=== PATIENT | male | born 1960 | race Caucasian/White ===

== ENCOUNTER 2020-03-20 18:13 | Observation (INO) | payer BC ==
[2020-03-20 20:35] LABS: Bilirubin Negative (Negative); Blood, Urine Negative (Negative); Clarity Clear (Clear); Glucose, Urine (Dipstick) 70 mg/dL (Negative); Ketone, Urine Negative (Negative); Leukocyte Negative Leu/uL (Negative); Nitrite Negative (Negative); Protein, Urine (Dipstick) Negative (Neg-Trace); Specific Gravity, Urine 1.058 (1.002-1.036); Urobilinogen Normal mg/dL (Less than 2); pH, Urine 5.5 (5.0-9.0)
[2020-03-20] MEDS ORDERED: Acetaminophen 325 MG TAB PO PRN (21:27)
[2020-03-20] MEDS ORDERED: Acetaminophen 650 MG Suppository PR PRN (21:27)
[2020-03-20] MEDS ORDERED: Dextrose 5% in Water 1,000 ML IV PRN (21:33)
[2020-03-20] MEDS ORDERED: Dextrose 50% Abboject 50 ML SYRINGE SLOW IVP PRN (21:33)
--- NOTE | 2020-03-20 21:50 | PDOC.HHP ---
Hospitalist HPI - History of Present Illness Confusion History of Present Illness: ADMISSION DATE: 03/20/2020 TIME OF ASSESSMENT: 1999 PRIMARY CARE PHYSICIAN: Dr. March CHIEF COMPLAINT: Confusion HPI: Mr. Veras is a 60-year-old gentleman who presented to the emergency department due to confusion and generalized weakness. The patient states that he felt well this morning when he woke up and had breakfast prior to going outside to do some work around his home. Patient states he decided to take a nap after feeling fatigued and generally unwell. He does not recall waking up and vaguely remembers being in the car on the way to the hospital. His took him to the emergency department in [place]. The patient apparently was disoriented shortly after waking and had been unbuttoning and buttoning his shirt. He also did not recognize his for what he was. patient states that he did not drink much fluids today and only had a couple coffee this morning. He did not have lunch. Did not check his glucose before taking his nap when he was feeling unwell. On arrival to the emergency department the patient was noted to have a glucose in the 40s. On arrival to the emergency department [place] he was given an amp of D50. Also given 4 tablets of aspirin due to concerns for possible stroke. ROS: Patient apparently has been well in recent days. Denies having any recent fevers chills or sweats. Denies any chest pain or palpitations. No shortness of breath and no headaches or dizziness. Today he did not experience any evident extremity weakness slurred speech or facial droop. Gait was normal. Did not experience any nausea or vomiting. Has not had any recent abdominal p ain or cramping. No urinary symptoms. All other review systems are negative. ED COURSE: EKG done at [place] showed sinus tachycardia with a heart rate of 101. No ST elevations or T wave abnormalities CT head was done and showed no acute intracranial abnormalities. Laboratory studies done notable for a white count of 13, hemoglobin 16.1, hematocrit 51.6%. Platelets 287. Neutrophils 85.1%. Sodium 143 potassium 4.2. BUN 19, creatinine 0.94, GFR 82. LFTs unremarkable. Glucose 47. Urinalysis unremarkable. Patient transferred to the ER here. PAST MEDICAL HISTORY: 1. Type 2 diabetes mellitus, on insulin 2. Hyperlipidemia 3. Hypertension PAST SURGICAL HISTORY: 1. Tonsillectomy 2. Appendectomy 3. Right ankle surgery 4. Bunion surgery 5. History of jaw fracture requiring wiring SOCIAL HISTORY: Patient lives with his . He is fully independent at baseline. Denies any cigarette but does dip half a can a day. Denies any alcohol consumption for 20 years. Has a history of alcohol abuse in the past. Denies any drug use. FAMILY HISTORY: Noncontributory ALLERGIES: No known drug allergies CURRENT MEDICATIONS: 1. Metformin 2. Lisinopril 3. Glipizide 4. Atorvastatin 5. Novolin insulin 6. Aspirin - Exam General Appearance: NAD General - other findings: Temp 98.4, BP 137/88, HR 100, RR 18, O2 sat 97% on room air. Eye - other findings: EOM intact, left lateral nystagmus ENT: normocephalic atraumatic, no oropharyngeal lesions, moist mucosa Neck: supple, no lymphadenopathy Heart: RRR, normal peripheral pulses Respiratory: CTAB, no wheezes, normal chest expansion Gastrointestinal: soft, non-tender, non-distended, normal bowel sounds, no guarding, no rigidity Extremities: no edema Skin: normal turgor, no lesions Neurological: cranial nerve grossly intact, normal sensation to touch, no weakness, no focal deficits Neurological - other findings: Speech normal, facial sensation intact, coordination normal Musculoskeletal: normal tone, normal strength, no muscle wasting Psychiatric: normal affect, normal behavior, A&O x 3 Hospitalist Results - Labs Lab results: Troponin I Less than 0.010 ng/mL (< 0.028) 03/20/20 19:02 Urine Ketones Negative mg/dL (Negative) 03/20/20 19:43 Urine Blood Negative (Negative) 03/20/20 19:43 Urine Nitrite Negative (Negative) 03/20/20 19:43 Ur Leukocyte Esterase Negative Teresa/uL (Negative) 03/20/20 19:43 Hospitalist H&P A/P - Problem (1) Confusion Code(s): R41.0 - DISORIENTATION, UNSPECIFIED Status: Acute Assessment and Plan: Admission request for CVA R/O given AMS episode and nystagmus. CT head negative. MRI brain in the AM. Echo. Carotid US. Neuro consult. Neuro checks. Lipid Panel with AM labs. Statin and Aspirin. (2) Hypoglycemic episode in patient with diabetes mellitus Code(s): E11.649 - TYPE 2 DIABETES MELLITUS WITH HYPOGLYCEMIA WITHOUT COMA Status: Acute Assessment and Plan: AMS likely secondary to hypoglycemic episode rather than CVA/TIA. Monitor glucose closely, for tonight, then resume ACHS if no further hypoglycemic episodes. Hold ISS. (3) Hypertension Code(s): I10 - ESSENTIAL (PRIMARY) HYPERTENSION Status: Chronic Assessment and Plan: Monitor BP Resume home meds once verified. (4) Hyperlipidemia Code(s): E78.5 - HYPERLIPIDEMIA, UNSPECIFIED Status: Chronic Assessment and Plan: Resume/increase statin. Lipid Panel with AM labs. - Plan Plan: FULL CODE STATUS. DVT Prophylaxis: Patient is ambulatory. Discussed with attending who agrees with plan as above.
[2020-03-20 23:35] LABS: Troponin I Less than 0.010 ng/mL (< 0.028)
[2020-03-21 01:42] LABS: Troponin I Less than 0.010 ng/mL (< 0.028)
[2020-03-21 02:53] VITALS: BMI 23.2
[2020-03-21 05:15] LABS: #Eosinphils 0.1 thou/uL (0.0-0.7); #Monocytes 0.6 thou/uL (0.11-0.59); #Neutrophils 4.2 thou/uL (1.40-6.50); %Basophils 0.6 % (0.0-1.0); %Eosinophils 2.1 % (0.0-10.0); %Lymphocytes 17.5 % (21.0-51.0); %Monocytes 9.9 % (0.0-10.0); %Neutrophils 69.9 % (42.0-75.0); Mean Corpuscular HGB CONC 33.9 g/dL (32.0-36.0); Mean Corpuscular Hemoglobin 31.9 pg (27.0-31.0); Mean Corpuscular Volume 94.1 fL (78.0-98.0); Mean Platelet Volume 6.9 fL (7.4-10.4); Platelet Count 246 thou/uL (130-400)
[2020-03-21 05:41] LABS: Anion Gap 14 mmol/L (10-20); BUN (Urea Nitrogen) 17 mg/dL (8.4-25.7); Calc. Creatinine Clearance 82 mL/min (70-130); Calcium 8.9 mg/dL (7.8-10.44); Carbon Dioxide 25 mmol/L (23-31); Cardiac Risk 3.5 (Less than 4.5); Chloride 103 mmol/L (98-107); Cholesterol 118 mg/dl (< 200 Desired); Estimated GFR-MDRD Greater than 90; Glucose 152 mg/dL (80-115); HDL Cholesterol 34 mg/dL (>60 Neg Risk); LDL Cholesterol, Calculated 75 mg/dL; Potassium 4.4 mmol/L (3.5-5.1); Sodium 138 mmol/L (136-145); Triglycerides 47 mg/dL (Less than 150)
[2020-03-21] MEDS: HumaLOG 300 UNITS/3 ML VIAL SC PRN ×2 (06:04→17:45)
[2020-03-21] MEDS ORDERED: Lorazepam 2 MG/ML VIAL SLOW IVP SCH (07:00)
[2020-03-21] MEDS ORDERED: Aspirin 81 mg Enteric Coated Tablet PO SCH (09:00)
[2020-03-21] MEDS ORDERED: Lorazepam 0.5 MG TAB PO PRN (09:53)
--- NOTE | 2020-03-21 11:53 | CON ---
NEUROLOGY CONSULTATION DATE OF CONSULTATION: 03/21/2020 REASON FOR CONSULTATION: Altered mental status. HISTORY OF PRESENT ILLNESS: Mr. Veras is a 60-year-old gentleman with medical history significant for hypertension, hyperlipidemia, type 2 diabetes mellitus, presented to the emergency room because of altered mental status and generalized weakness. Per the patient, yesterday morning he felt well, had breakfast and prior to going outside to do some work, he decided to do some work in his house. He decided to take a nap afterwards and has no recollection of the events. Per patient, he does not recall waking up and per he does not even remember his name. He was extremely disoriented, walking around in the house, buttoning and unbuttoning his shirt. The denies any focal weakness, facial droop, nausea, vomiting, headache, chest pain, abdominal pain associated with the episode. On arrival to the emergency room, his blood glucose was in the 40s, so he was given an amp of D50 and four tablets of aspirin for possible stroke. The patient is now back to the baseline. The patient denies any complaints. REVIEW OF SYSTEMS: All systems reviewed and were negative except the pertinent positives and negatives mentioned in the HPI. In the emergency room, head CT was done, which did not reveal any acute intracranial abnormalities. EKG done at [place] showed sinus tachycardia. He was transferred to the emergency room at [facility] for further evaluation to rule out TIA. PAST MEDICAL HISTORY: Diabetes, hypertension, hyperlipidemia. PAST SURGICAL HISTORY: Tonsillectomy, appendectomy, right ankle surgery, bunion surgery, history of jaw fracture requiring wiring. SOCIAL HISTORY: The patient is , lives with his . Denies smoking, alcohol, illegal drug use. He does have history of alcohol abuse in the past about 20 years ago. FAMILY HISTORY: No family history of stroke. ALLERGIES: NO KNOWN DRUG ALLERGIES. HOME MEDICATIONS: 1. Metformin. 2. Lisinopril. 3. Glipizide. 4. Atorvastatin. 5. Novolin insulin. 6. Aspirin. VITAL SIGNS: Temp 98.4, BP 137/88, HR 100, RR 18, O2 sat 97% on room air. PHYSICAL EXAMINATION: General Appearance: NAD General - other findings: ENT: normocephalic atraumatic, no oropharyngeal lesions, moist mucosa Neck: supple, no lymphadenopathy Heart: RRR, normal peripheral pulses Respiratory: CTAB, no wheezes, normal chest expansion Gastrointestinal: soft, non-tender, non-distended, normal bowel sounds, no guarding, no rigidity Extremities: no edema Skin: normal turgor, no lesions Neurological: Mental status; the patient is alert and oriented to person, place, and time. Recent and remote memory intact. Fund of knowledge is appropriate. Speech is clear. Motor; muscle tone and bulk are normal. Strength 5/5 bilaterally. Cranial nerves II through XII intact. Sensory intact. Cerebellar; finger-nose testing intact. Gait; deferred due to the patient's safety reasons. DATA REVIEWED: I reviewed the labs, which were essentially unremarkable. CT did not reveal acute intracranial pathology. Troponin I Less than 0.010 ng/mL (< 0.028) 03/20/20 19:02 Urine Ketones Negative mg/dL (Negative) 03/20/20 19:43 Urine Blood Negative (Negative) 03/20/20 19:43 Urine Nitrite Negative (Negative) 03/20/20 19:43 Ur Leukocyte Esterase Negative Teresa/uL (Negative) 03/20/20 19:43 ASSESSMENT AND PLAN: (1) Confusion Code(s): R41.0 - DISORIENTATION, UNSPECIFIED Status: Acute (2) Hypoglycemic episode in patient with diabetes mellitus Code(s): E11.649 - TYPE 2 DIABETES MELLITUS WITH HYPOGLYCEMIA WITHOUT COMA Status: Acute (3) Hypertension Code(s): I10 - ESSENTIAL (PRIMARY) HYPERTENSION Status: Chronic . (4) Hyperlipidemia Code(s): E78.5 - HYPERLIPIDEMIA, UNSPECIFIED Status: Chronic Mr. Veras is a 60-year-old male, who presented with an episode of altered mental status with fatigue. Differential diagnosis includes transient ischemic attack versus seizure activity versus hypoglycemic episode resulting in confusion. MRI of the brain to rule out acute intracranial pathology. 2D echo to evaluate for left ventricular ejection fraction. Carotid Dopplers and telemetry. Neuro checks every 4 hours. EEG to rule out underlying seizure activity. Check hemoglobin A1c fasting lipid panel, and TSH. Continue aspirin, high-intensity statin for secondary stroke prevention. Continue home medications. Permissive control of blood pressure at this time. Strict control of blood glucose. Continue medical management per primary team. PT/OT/speech, we will continue to follow. Thank you for the consult. Job ID: [id number] [facility]
--- NOTE | 2020-03-21 13:03 | MRI ---
MRI of thebrain: 03/21/2020 COMPARISON:None available HISTORY:TIA versus stroke, history of diabetes, altered mental status with left-sided weakness TECHNIQUE: Multiplanar multisequence MR imaging of thebrain with and without contrast Findings:The diffusion weighted imaging demonstrates no evidence for acute infarction. The axial gradient echo imaging demonstrates no evidence for intracranial hemorrhage. The visualized paranasal sinuses and mastoid air cells appear well-aerated. There is abnormal increas ed T2 signal intensity within the medulla which is nearly completely involving the medulla with partial sparing posteriorly and laterally on the left. The medulla appears expanded. This extends int o the proximal aspect of the cervical cord to approximately the axial level of the C1-2 articulation. The postcontrast imaging demonstrates no significant enhancement in this region. This lesion involving the medulla and proximal cervical cord measures at least 3.9 cm in craniocaudal dimension, 1.6 cm in AP dimension, and approximately 1.5 cm in transverse dimension. The postcontrast imaging demonstrates no abnormal enhancement within the brain parenchyma. There are multiple small foci of increased T2 and FLAIR signal scattered throughout the periventricul ar, deep, and subcortical white matter, evidence of small vessel disease. IMPRESSION:Lesion within the medulla and upper cervical cord demonstrating expansion and prominent in creased T2 and FLAIR signal without enhancement. No restricted diffusion. Nonenhancing low-grade neoplasm, such as astrocytoma, is favored. Transverse myelitis however is a po ssibility as well. This study was reviewed in consultation with Dr. Roberts Results sent to Dr. Waldron via in2nite at 1:00 PM 03/21/2020
--- NOTE | 2020-03-21 13:04 | PDOC.EEG ---
Neurology EEG Report - Report Report: This EEG was performed using 24 channel [employer] video digital EEG machine with 24 disc electrodes. This was an extended 2 hours 5 minutes of EEG recording. Digital analysis of the EEG was done for Bhargav and seizure detection which revealed no abnormalities. Background: The posterior background rhythm is 9-10 Hz. Minimal activity seen with eye opening and closure. Photic stimulation: Bioccipital symmetric driving response seen with photic stimulation. Hyperventilation: Not performed. Sleep: Drowsiness is observed. EEG diagnosis: Normal awake and drowsy EEG.
[2020-03-21 15:36] VITALS: BP 131/82; TEMP 97.7
--- NOTE | 2020-03-21 16:14 | PDOC.HOSPP ---
- Subjective Encounter Date: 03/21/20 Encounter Time: 16:12 Subjective: Patient was seen for follow-up regarding acute metabolic encephalopathy. He is awake and alert, denies any complaints. - Objective Vital Signs & Weight: Vital Signs (12 hours) Temp Pulse Resp BP BP Pulse Ox 03/21/20 15:32 97.7 F 98 16 131/82 97 03/21/20 11:41 98.1 F 76 16 128/81 94 L 03/21/20 07:33 97.7 F 91 16 125/73 96 Weight Weight 135 lb 8 oz Result Diagrams: 03/21/20 04:57 03/21/20 04:57 Additional Labs: Accuchecks 03/21/20 03/21/20 08:37 04:32 POC Glucose 115 H 153 H I reviewed patient's labs and MAR EKG Reviewed by me: Yes (Telemetry: NSR) Hospitalist ROS - Review of Systems Cardiovascular: denies: chest pain, palpitations, orthopnea, paroxysmal noc. dyspnea, edema, light headedness Gastrointestinal: denies: nausea, vomiting, abdominal pain, diarrhea, constipation, melena, hematochezia - Medication Medications: Active Medications Generic Name Dose Route Start Last Admin Trade Name Freq PRN Reason Stop Dose Admin Aspirin 81 mg 03/21/20 09:00 03/21/20 08:52 Aspirin 81 Mg Enteric Coated Tablet PO 81 mg DAILY LEONIDAS Administration Insulin Human Lispro 0 units 03/21/20 05:15 03/21/20 06:04 Humalog 300 Units/3 Ml Vial SC 2 unit .MILD SLIDING SCALE PRN Administration MILD SLIDING SCALE Protocol Lorazepam 1 mg 03/21/20 07:00 03/21/20 11:45 Lorazepam 2 Mg/Ml Vial SLOW IVP 1 mg WILLCALL LEONIDAS Administration Sodium Chloride 10 ml 03/20/20 21:27 03/21/20 11:45 Flush - Normal Saline 10 Ml Syringe IVF 10 ml PRN PRN Administration Saline Flush - Exam General Appearance: awake alert Eye: anicteric sclera ENT: moist mucosa Neck: supple Heart: RRR Respiratory: CTAB Gastrointestinal: soft, non-tender Extremities: no edema Skin: no rashes Psychiatric: normal affect, normal behavior Hosp A/P - Plan - Problem (1) acute metabolic encephalopathy Code(s): R41.0 - DISORIENTATION, UNSPECIFIED Status: Acute Assessment and Plan: Appears to have significantly improved. Neuro work-up negative so far, except for MRI findings suspicious for neoplasm versus transverse myelitis. Neurology service following, neurosurgery service has been consulted. (2) Hyperlipidemia Code(s): E78.5 - HYPERLIPIDEMIA, UNSPECIFIED Status: Chronic Assessment and Plan: Continue statin. (3) Hypertension Code(s): I10 - ESSENTIAL (PRIMARY) HYPERTENSION Status: Chronic Assessment and Plan: Monitor vital signs and titrate antihypertensives as needed. (4) Hypoglycemic episode in patient with diabetes mellitus Code(s): E11.649 - TYPE 2 DIABETES MELLITUS WITH HYPOGLYCEMIA WITHOUT COMA Status: Resolved Assessment and Plan: Likely responsible for patient's acute presentation.
--- NOTE | 2020-03-21 18:38 | PDOC.DS.DS ---
Provider - Provider Date of Admission: 03/20/20 19:42 Date of Discharge: 03/21/20 Admitting Provider: Osbaldo Shaver Consultations: Neurology, Other (Neurosurgery) Primary Care Physician: Vidal March MD Course - Hospital Course Hospital Course: Discharge diagnosis: 1. Acute metabolic encephalopathy 2. Hypoglycemic episode 3. Medullary and cervical spine lesion seen on MRI, etiology unclear Hospital course: Patient is a pleasant 60-year-old gentleman who was admitted to [facility] for acute metabolic encephalopathy in the context of hypoglycemia. He had resolution of his symptoms following admission. He was seen by neurology service. It was felt that his presentation was secondary to hypoglycemia. EEG was normal. He had MRI of the brain with and without contrast, which showed lesion within the middle and upper cervical cord demonstrating expansion and prominent increased T2 and flair signal without enhancement. Radiologist favored nonenhancing low-grade neoplasm such as astrocytoma. Transverse myelitis was a possibility as well. I consulted neurosurgery service. They felt that this was a nonacute issue. They will follow up with patient as outpatient. He has been cleared for discharge. I have advised patient to discontinue glipizide for now and to check his blood sugars 3 times a day and shows readings to his primary care provider. He will continue Metformin. At the time of this dictation, 2D echocardiogram result is pending. COVID-19 PCR test result is pending as well. He is advised to follow-up with his primary care provider for the these results. Resuscitation Status: 03/20/20 21:27 Resuscitation Status Routine Co-Sign Provider: Resuscitation Status: FULL: Full Resuscitation - Labs Lab Results: 03/21/20 04:57 03/21/20 04:57 Abnormal Lab Results - Last 48 hrs 03/20/20 19:43: Ur Specific [place] 1.058 H, Urine Glucose (UA) 70 A 03/21/20 04:57: RBC 4.40 L, Hct 41.4 L, MCH 31.9 H, MPV 6.9 L, Lymphocytes % 17.5 L, Lymphocytes # 1.0 L, Monocytes # 0.6 H - Physical Exam Vitals: Vital Signs (12 hours) Temp Pulse Resp BP BP Pulse Ox 03/21/20 15:32 97.7 F 98 16 131/82 97 03/21/20 11:41 98.1 F 76 16 128/81 94 L 03/21/20 07:33 97.7 F 91 16 125/73 96 Weight Weight 135 lb 8 oz Physical Exam: The patient was seen and examined on the day of discharge. Please refer to my daily hospitalist progress note for further details regarding this [id number] encounter. Plan - Discharge Medications Home Medications: Medication Instructions Recorded Confirmed Type Aspirin [Ecotrin Low Strength] 81 mg PO DAILY 03/21/20 03/21/20 History Atorvastatin Calcium 10 mg PO HS 03/21/20 03/21/20 History Carisoprodol 350 mg PO TID 03/21/20 03/21/20 History Insulin NPH Human Isophane 24 unit SC HS 03/21/20 03/21/20 History [NovoLIN N] Lisinopril 10 mg PO DAILY 03/21/20 03/21/20 History metFORMIN [Glucophage] 500 mg PO BID 03/21/20 03/21/20 History Allergies: No Known Drug Allergies Allergy (Verified 03/21/20 05:42) PER ER NOTES - Discharge Instructions Discharge Instructions:: CHECK YOUR BLOOD SUGARS THREE TIMES A DAY AND SHOW THE READINGS TO YOUR PRIMARY CARE PROVIDER. Follow-up with primary care provider for 2D echo report and COVID-19 PCR test result. Activity:: Activity as Tolerated Nourishment:: Diabetic Diet, Heart Healthy Diet - Follow up Plan Referrals: Vidal March MD [Primary Care Provider] - 3 Days Todd Garcia MD [Active] - 3-4 Weeks Disposition: HOME Quality - Care Measures CORE MEASURES:: N/A
[2020-03-21] MEDS ORDERED: Atorvastatin Calcium 40 MG TAB PO SCH (21:00)
--- NOTE | 2020-03-21 22:24 | CON ---
DATE OF CONSULTATION: 03/21/2020 HISTORY OF PRESENT ILLNESS: The patient is a 60-year-old male with a past medical history of diabetes, hypertension, hyperlipidemia, who developed confusion and gen weakness following waking up from a nap on 03/20/2020. He was brought to the emergency department in [place] where he was found to be significantly hypoglycemic with blood sugar in the 40s. He was treated with an amp of D50 and also evaluated for stroke workup. He was transferred to [facility] for additional evaluation and admission by the medical team. During his admission, the patient has had resolution of his prior confusion and generalized weakness, is now back to his baseline. He did have an MRI of the brain done, which is notable for hyperintense T2 and FLAIR signal without enhancement in the medulla and upper cervical cord. This is of uncertain etiology and likely incidental and unrelated to his sudden confusion and generalized weakness. This could represent neoplasm or old lesion like myelitis. I visited the patient at the bedside. He is A and O x4. He has no focal neurologic deficits and reports he feels back to his baseline. PAST MEDICAL HISTORY: Diabetes, hypertension, hyperlipidemia. PAST SURGICAL HISTORY: Tonsillectomy, appendectomy, right ankle surgery, bunion surgery, history of jaw fracture. SOCIAL HISTORY: The patient is . He lives at home. He does not smoke, drink, or use any drugs. He works for [employer] in the [place] department. REVIEW OF SYSTEMS: Per HPI. PHYSICAL EXAMINATION: VITAL SIGNS: Stable. A and O x4. CONSTITUTIONAL: Awake, alert, in no acute distress. HEENT: Head, normocephalic and atraumatic. Eyes, PERRLA. Extraocular movements intact. ENT: [place], intact, moist. NECK: Nontender. Free active range of motion. No meningismus or nuchal rigidity. CARDIAC: Regular rate and rhythm. PULMONARY: Symmetric chest expansion. No evidence of dyspnea. MUSCULOSKELETAL: Free active range of motion of all extremities. No focal motor weakness. NEURO: A and O x4. No focal neurologic deficits are appreciated. He has a steady gait. ASSESSMENT AND PLAN: The patient has recent sudden events of confusion and generalized weakness in the setting of hypoglycemia. This has since resolved with correction of his blood sugar. He did have an MRI with hyperintense T2 and FLAIR signals in the medulla and upper cervical cord of unclear etiology. This could recommend process such as transverse myelitis or low-grade neoplasm. This is likely an incidental finding. At this point, we feel he could be safely discharged to home and we will arrange outpatient repeat MRI of the brain and cervical spine with and without contrast in approximately three months. I have discussed with the patient. We will arrange followup with our office. Please reach out to Neurosurgery for additional questions or concerns. Job ID: [id number]
[2020-03-22 12:57] LABS: SARS-CoV-2 MS2 Positive; SARS-CoV-2 N Gene Negative; SARS-CoV-2 S Gene Negative; SARS-CoV-2 by NAA Not Detected (NotDetected); SARS-CoV-2 orf1ab Negative
== END 2020-03-21 19:18 | disposition home or self-care (01) ==
LOC: ERS 18:13 → ERHOLD 19:42 → 2SE 03-21 02:29
PROVIDERS: ADMIT Internal Medicine; ATTEND Internal Medicine
DX: G93.41 Metabolic encephalopathy (principal); E11.649 Type 2 diabetes mellitus with hypoglycemia without coma; M89.9 Disorder of bone, unspecified; I10 Essential (primary) hypertension; E78.5 Hyperlipidemia, unspecified; F17.290 Nicotine dependence, other tobacco product, uncomplicated; F10.11 Alcohol abuse, in remission; Z79.4 Long term (current) use of insulin; Z79.82 Long term (current) use of aspirin; Z79.899 Other long term (current) drug therapy; Z20.828 Contact with and (suspected) exposure to other viral communicable diseases
CPT/HCPCS: 36415; 36416; 70553; 80048; 80061; 84484; 85025; 87635; 90471; 90732; 93306; 95712; 95816; 95819; 95957; 96374; 99285; G0009; G0378; J2060; U0003